=== PATIENT | female | born 1975 | race Caucasian/White ===

== ENCOUNTER → 2018-03-20 | Day surgery (SDC) | payer OTHER ==
[~2018-03-20] MED LIST: FENTANYL CITRATE/PF 100MCG/2 ML INJ ONE; GABAPENTIN600 MG PO; HYDROCORTISONE SOD SUCCINATE 100 MG VIAL ONE; LISINOPRIL PO; METFORMIN HCL1000 MG PO; METHOTREXA25 MG/1 ML INJ; MIDAZOLAM HCL 2 MG/2 ML VIAL ONE; PLAQUENIL200 MG PO; PRAVASTATIN SOD40 MG PO; PREDNISONE20 MG PO; PROPOFOL IV EMULSION 10 MG/ML 50 ML VIAL ONE; SODIUM CHLORIDE 0.9% 50ML 50 ML ONE
--- OUTSIDE RECORDS SUMMARY | 2018-03-20 10:17 | XMS REPORT | Clinical Summary ---
Author Author [facility] Organization [facility] Address Unknown Phone Unavailable Care Team Providers Care Service Bar Cashier Name Role Phone Asked, No Pcp PCP Unavailable Allergies No Known Allergies Medications Not on file Active Problems Not on file Social History Date Tobacco Use Types Packs/Day Years Used Never Smoker Sex Assigned at Date Recorded Not on file Industry Job Start Date Occupation Not on file Not on file Not on file Travel End Travel History Travel Start No recent travel history available. Last Filed Vital Signs Not on file Plan of Treatment Health Maintenance Due Date Last Done Comments CERVICAL CANCER SCREENING 1998 INFLUENZA VACCINE 10/30/2017 Results Not on fileafter 03/19/2017 Insurance Payer Benefit Subscriber ID Type Phone Address Plan / Group AETNA AETNA xxxxxxxxxx HMO HMO,POS,EP O, [facility] (Home) [place] [address] Advance Directives Patient has advance care planning documents on file. For more information, [place] [facility] contact: Hank Patterson [phone] [place] [address]
[2018-03-20 13:45] VITALS: BP 113/48
--- NOTE | 2018-03-20 14:42 | Operative Report ---
DATE OF PROCEDURE: March 20, 2018 REFERRING PHYSICIAN: Dr. Raffy Suarez PROCEDURE PERFORMED: Esophagogastroduodenoscopy. INDICATIONS FOR EGD: Upper abdominal pain. MEDICATION: Patient was done under MAC. Please see anesthesiologist's note. PROCEDURE: With the patient in the left lateral decubitus position, the flexible fiberoptic Olympus gastroscope was introduced into the esophagus under direct visualization without any difficulty. There was some patchy erythema noted in the distal esophagus. The scope was then advanced with ease into the stomach, and mucosa overlying the antrum and the body revealed some patchy erythema and low-grade to moderate edema, and biopsies were obtained and sent to stain for H. pylori. The pylorus was of normal contour and shape. It was intubated with ease, and the scope was advanced all way to the 2nd portion of the duodenum. Biopsies were obtained from the proximal 2nd portion and the duodenal bulb to rule out sprue. The scope was then withdrawn back into the stomach and retroflexed. Mucosa overlying the fundus and the cardia appeared to be within normal limits. The scope was then straightened out. It was subsequently withdrawn. Patient tolerated the procedure well. IMPRESSION 1. Distal esophagitis, mild. 2. Gastritis, biopsied. Biopsies sent to stain for H. pylori. 3. Rule out sprue. PLAN: Follow up histology. Initiate Protonix 40 mg 1 p.o. q.a.m. a.c. Job#: [id number] cc:LULY SUAREZ DO
== END | disposition home or self-care (01) ==
LOC: OR 10:12
PROVIDERS: ATTEND Internal Medicine Gastroenterology
DX: K29.70 Gastritis, unspecified, without bleeding (principal); K20.9 Esophagitis, unspecified; M06.9 Rheumatoid arthritis, unspecified; E11.9 Type 2 diabetes mellitus without complications; Z79.84 Long term (current) use of oral hypoglycemic drugs
CPT/HCPCS: 36415; 43239; 81025; 82948; J1720; J2250

== ENCOUNTER 2019-03-06 10:50 | Observation (INO) | payer OTHER ==
[2019-03-05 16:34] LABS: CLARITY,URINE CLEAR (CLEAR); COLOR,URINE COLORLESS (YELLOW); LEUKOCYTE ESTERASE ,URINE NEGATIVE (NEGATIVE); NITRITE,URINE NEGATIVE (NEGATIVE)
[2019-03-05 16:35] LABS: PROTEIN,URINE DIPSTICK NEGATIVE (NEGATIVE); URINE UROBILINOGEN 0.2 mg/dL (0.2 - 1)
[2019-03-05 16:36] LABS: BILIRUBIN,URINE NEGATIVE (NEGATIVE); KETONES,URINE NEGATIVE (NEGATIVE)
[2019-03-05 16:43] LABS: BASOPHILS # (AUTO) 0.1 (0.0-0.1); BASOPHILS % 0.6 % (0.0-1.0); EOSINOPHILS % 0.5 % (0.0-6.0); HEMATOCRIT 32.7 % (34.2-44.1); HEMOGLOBIN 10.3 g/dL (12.0-16.0); LYMPHOCYTES # (AUTO) 2.3 (1.0-3.2); LYMPHOCYTES % 27.3 % (18.0-39.1); MEAN CORPUSCULAR HGB CONC 31.5 g/dL (31-35); MEAN CORPUSCULAR VOLUME 82.6 fL (81-99); MONOCYTES # (AUTO) 0.7 (0.2-0.8); MONOCYTES % 8.1 % (4.4-11.3); NEUTROPHILS # (AUTO) 5.4 (2.1-6.9); NEUTROPHILS % 63.1 % (38.7-80.0); PLATELET COUNT 311 x10e3/uL (140-360); RED BLOOD COUNT 3.96 x10e6/uL (3.6-5.1); RED CELL DISTRIBUTION WIDTH 14.9 % (11.7-14.4)
[2019-03-05 17:07] LABS: ALANINE AMINOTRANSFERASE 11 IU/L (0-55); ALBUMIN 4.2 g/dL (3.5-5.0); ALBUMIN/GLOBULIN RATIO 1.4 (0.8-2.0); ALKALINE PHOSPHATASE 46 IU/L (40-150); ANION GAP 15.8 mmol/L (8-16); BLOOD UREA NITROGEN 15 mg/dL (7-26); BUN/CREATININE RATIO 21 (6-25); CALCIUM 9.6 mg/dL (8.4-10.2); CARBON DIOXIDE 24 mmol/L (22-29); CHLORIDE 101 mmol/L (98-107); CREATININE, SERUM 0.73 mg/dL (0.57-1.11); EST GLOMERULAR FILTRATION RATE > 60 ML/MIN (60-); GLUCOSE 104 mg/dL (74-118); POTASSIUM 3.8 mmol/L (3.5-5.1); SODIUM 137 mmol/L (136-145)
[~2019-03-06] VITALS: Ht 175.3 cm; Wt 53.1 kg
[~2019-03-06 10:50] MED LIST changes: -FENTANYL CITRATE/PF 100MCG/2 ML INJ ONE; -HYDROCORTISONE SOD SUCCINATE 100 MG VIAL ONE; -MIDAZOLAM HCL 2 MG/2 ML VIAL ONE; -PROPOFOL IV EMULSION 10 MG/ML 50 ML VIAL ONE; +REMICADE100 MG/VIA IV; -SODIUM CHLORIDE 0.9% 50ML 50 ML ONE; +SOMA350 MG PO; +TRULICITY1.5 MG/0.5 SC
[2019-03-06] MEDS ORDERED: CEFAZOLIN SOD 1 GM/NS 50ML 100 ML IV ONE (11:09)
[2019-03-06] MEDS ORDERED: BUPIVACAINE 0.25%/EPI 30ML SDV INJ ONE (12:31)
[2019-03-06] MEDS ORDERED: ESTROGENS CONJUGATED VAGINAL CR 45 GM TUBE PV ONE (12:31)
[2019-03-06] MEDS ORDERED: FENTANYL CITRATE/PF 100MCG/2 ML INJ ONE ×2 (14:00→16:04)
[2019-03-06] MEDS ORDERED: MIDAZOLAM HCL 2 MG/2 ML VIAL ONE (14:00)
[2019-03-06] MEDS ORDERED: ACETAMINOPHEN 325 MG TAB PO PRN (15:30)
[2019-03-06] MEDS ORDERED: DIPHENHYDRAMINE HCL 25 MG CAP PO PRN (15:30)
[2019-03-06] MEDS ORDERED: BISACODYL 10 MG SUPP PR PRN (15:30)
[2019-03-06] MEDS ORDERED: KETOROLAC TROMETHAMINE 30 MG/ML VIAL IV PRN (15:30)
[2019-03-06] MEDS ORDERED: DOCUSATE SODIUM 100 MG CAP PO PRN (15:30)
[2019-03-06] MEDS ORDERED: SIMETHICONE 80 MG CHEW PO PRN (15:30)
[2019-03-06] MEDS ORDERED: MEPERIDINE HCL INJ 25 MG/ML VIAL ONE (15:37)
[2019-03-06 16:51] VITALS: BP 129/71
[2019-03-06] MEDS ORDERED: METFORMIN HCL 500 MG TAB CR PO SCH (17:00)
[2019-03-06] MEDS: METFORMIN HCL 500 MG TAB CR PO SCH (17:00)
[2019-03-06] MEDS: HYDROMORPHONE 1MG/1ML INJ IV PRN ×2 (17:05→21:08)
[2019-03-06] MEDS: LACTATED RINGER'S 1,000 ML IV SCH (17:12)
[2019-03-06] MEDS: ONDANSETRON HCL INJ 2MG/ML 2ML 2 MG/ML VIAL IV PRN (17:12)
[2019-03-06 17:30] VITALS: BP 129/71
[2019-03-06 17:36] VITALS: BP 129/71
[2019-03-06] MEDS ORDERED: PROPOFOL IV EMULSION 10 MG/ML 20 ML VIAL ONE (18:47)
[2019-03-06] MEDS ORDERED: ONDANSETRON HCL INJ 2MG/ML 2ML 2 MG/ML VIAL ONE (18:47)
[2019-03-06] MEDS ORDERED: NEOSTIGMINE 1 MG/ML 10ML VIAL ONE (18:47)
[2019-03-06] MEDS ORDERED: LIDOCAINE HCL 2% JELLY 5 ML TUBE ONE (18:47)
[2019-03-06] MEDS ORDERED: ACETAMINOPHEN 1000 MG/100 ML IV ONE (18:47)
[2019-03-06] MEDS ORDERED: ROCURONIUM BROMIDE 10 MG/ML 5ML VIAL ONE (18:47)
[2019-03-06] MEDS ORDERED: GLYCOPYRROLATE INJ 0.2 MG/ML VIAL ONE (18:47)
[2019-03-06] MEDS ORDERED: DEXAMETHASONE SOD PHOS INJ 4 MG/ML VIAL ONE (18:47)
[2019-03-06] MEDS ORDERED: SEVOFLURANE INHAL SOLN 250 ML PEN BTL ONE (18:47)
[2019-03-06] MEDS ORDERED: LIDOCAINE HCL 2% LOCAL INJ 5 ML SDV VIAL INJ ONE (18:47)
--- NOTE | 2019-03-06 19:05 | NUR ---
Received report from previous nurse. Call light within reach. Patient in bed. Family at the bedside.
[2019-03-06 20:50] VITALS: BP 112/59
[2019-03-06] MEDS: CEFAZOLIN SOD 2 GM/D5W 50ML 50 ML IV SCH (20:59)
[2019-03-06] MEDS: GABAPENTIN 300 MG CAP PO SCH (20:59)
[2019-03-06] MEDS ORDERED: NON-FORMULARY MEDICATION (Gabapentin 600 MG) PO SCH (21:00)
--- NOTE | 2019-03-06 21:05 | NUR ---
Patient wanted to walk around the room and Gonzalez was removed. Patient voided immediately after the Gonzalez was removed.
[2019-03-06 21:48] VITALS: BP 112/59
[2019-03-06] MEDS ORDERED: CEFAZOLIN SOD 1 GM VIAL IV SCH (22:00)
[2019-03-06] MEDS: TRAMADOL HCL 50 MG TAB PO PRN (22:15)
--- NOTE | 2019-03-06 23:19 | Operative Report ---
DATE OF PROCEDURE: 03/06/2019 SURGEON: Jono Dudley MD PREOPERATIVE DIAGNOSES: Menorrhagia, fibroid uterus, and anemia. POSTOPERATIVE DIAGNOSES: Menorrhagia, fibroid uterus, anemia, and endometriosis. TITLE OF PROCEDURE: Total laparoscopic hysterectomy, right salpingo-oophorectomy, left salpingectomy, and cautery of endometriosis. DIAGNOSTIC TECHNOLOGIST: Tip Mccloud MD ANESTHESIA: General with Dr. Bey and Andrzej assistant baseball coach. INDICATION FOR OPERATION: The patient is a 43-year-old 2, para 2 with last menstrual period on February 10, 2019, using withdrawal for contraception, who has a history of abnormal uterine bleeding, which was heavy for 3 days each period. She has had increasing right lower quadrant pain since January 27, 2019, becoming severe. She has failed medical therapy and she would like total laparoscopic hysterectomy, right salpingo-oophorectomy. Endometrial biopsy was attempted to evaluate the abnormal bleeding, but was unsuccessful. Ultrasound did show a 7 mm endometrium. Her cervix was stenotic from previous LEEP procedure. She was therefore taken to the operating room at this time for total laparoscopic hysterectomy. FINDINGS OF SURGERY: There was an 8-10 week size nodular uterus with specially anterosuperior subserosal myoma. The uterus was otherwise mobile. There were no adhesions. There was normal tubes and ovaries. There was a small spot of endometriosis noted on the right uterosacral ligament, which was cauterized. DESCRIPTION OF PROCEDURE: The patient was taken to the operating room, placed on the table in supine position. General anesthesia was administered. The patient was placed in the lithotomy position. The perineum was prepared and draped in usual sterile manner. The Gonzalez catheter was placed in bladder for constant drainage. Pelvic exam revealed an 8-10 week size nodular uterus, which was mobile with no adnexal masses. A weighted speculum was placed in the posterior vaginal wall. Then with the aid of right-angle retractor, the cervix was grasped with 2 single-tooth tenacula. The cervix was stenotic and with some difficulty, we were able to dilate it. Eventually, we were able to place the large VCare cup on the cervix, apply it well, and it apparently manipulated the uterus quite well. At this point, we proceeded with the hysterectomy. The nailer operator changed gloves. A small incision was made just inferior to the umbilicus in the midline. The Veress needle was inserted through the incision into the peritoneal cavity. A pneumoperitoneum was created by insufflation of 3 L of carbon dioxide gas under a filling pressure of 8-10 mmHg. The Veress needle was removed and then the trocar was inserted through the incision into the peritoneal cavity under direct visualization. The trocar was removed and the laparoscoped was placed. With confirmation of the peritoneal cavity being entered, a second trocar was placed in the right lower quadrant under direct visualization by laparoscopy and a third trocar was placed in the left lower quadrant under direct visualization by laparoscopy. At this point, we examined the contents of the abdomen and pelvis, finding no adhesions. We found an 8-10 week size nodular uterus with fibroids. There were no adhesions. There was normal tubes and ovaries. There was a small spot of endometriosis noted on the right uterosacral ligament, which was cauterized. At this point, attention was turned to the left adnexa. It was grasped and then the left tube was grasped and the LigaSure instrument was placed over the mesosalpinx, the tube from the ovary. The LigaSure instrument was fired and then the mesosalpinx was cut and the ovary was from the tube. There was good hemostasis presently, cut down further on the mesosalpinx, clamping, cauterizing, and cutting with the LigaSure instrument until we reached the tubo-ovarian ligament, which was then clamped and cut after being cauterized. At this point, the round ligament was clamped, cauterized, and cut and then at this point, a window was made in the anterior peritoneum using the LigaSure instrument, cutting from the anterior peritoneum on the left side to the midline, clamping and cauterizing and then cutting and then at this point, the VCare cup was visualized and the vessels were well from the attachments being well skeletonized. We placed the LigaSure over the uterine vessels, clamping, cauterizing twice, and then cauterizing medial to this and then cutting on the left side and then there was good hemostasis in evidence. At this point, the uterosacral ligament on the left side was clamped with the LigaSure, cauterized and cut, and then we had access to the posterior portion of the VCare cup and anteriorly the bladder was pushed away from the uterus and the small blood vessels in that area were cauterized. At this point, we went to the right side, grasped the uterus and tubes, placed the LigaSure instrument over the infundibulopelvic ligament, clamping, cauterizing twice, and then cutting. This the right tube and ovary away from the pelvic sidewall. At this point, the mesosalpinx was clamped, cauterized, and cut in several bites until we reached the round ligament, which was then clamped, cauterized, and cut. At this point, the anterior peritoneum was opened from the right side to the midline and then we were able to push the bladder away from the uterus with blunt dissection and then we were able to identify the VCare cup position. At this point, the uterine vessels on the right side were skeletonized and they were clamped close to the uterus, cauterized in two places, and then cauterized again more medial, and the uterine vessels were cut, and there was good hemostasis in evidence there. At this point, we pushed the bladder down more and then the VCare cup could be seen through the tissue. We then circumscribed the uterus with the L hook cauterizing within the VCare cup and 360 degrees around the cervix. This isolated the uterus cutting away from all its attachments, both uterosacral ligaments and the cardinal ligaments on each side. Then the uterus was free. Before we cut it away, there was a spot of endometriosis noted on the right uterosacral ligament. This was clamped and cauterized until it was completely obliterated. At this point, the uterus was then removed and we instructed the anesthesiologist to give a fluid bolus for the later cystoscopy and we proceeded to close the vaginal cuff with 4 [id number] stitches of 2-0 Vicryl suture using laparoscopic suturing. First, the angles were ligated and cut and then the rest of the vaginal cuff was tied off with a [id number] stitches. There was good hemostasis in evidence. Then, we irrigated and suctioned, found to be no further bleeding. At this point, after more irrigation and suction, Dr. Mccloud proceeded to fill the bladder with fluid while we were observing laparoscopically. There was no evidence of any leaks in the bladder and then following this, we proceeded to perform cystoscopy. The scope was placed in the bladder and we observed the ureteral orifices and noted good urine flow from both ureters and the ureteral jets were well identified. At this point, the cystoscopy was concluded and then all the air and instruments were removed from the abdomen. The skin incisions were closed with inverted stitches of 4-0 Monocryl suture inverted stitches thus completing the procedure. There were no complications noted. Estimated blood loss was 100 mL. The patient tolerated the procedure well, was transferred from the operating room to recovery room in stable condition. Of note, Dr. Mccloud assisted with retraction, hemostasis, visualization, suturing, irrigation, and suctioning. The patient was taken from the operating room to recovery room in stable condition. MD MORIAH Jhaveri/JB /[id number]
[2019-03-07] VITALS: BP 117/58
[2019-03-07] MEDS: HYDROMORPHONE 1MG/1ML INJ IV PRN ×4 (01:22→12:21)
[2019-03-07] MEDS: CEFAZOLIN SOD 2 GM/D5W 50ML 50 ML IV SCH ×2 (03:46→11:03)
[2019-03-07 05:34] VITALS: BP 120/60
[2019-03-07 06:14] LABS: BASOPHILS % 0.4 % (0.0-1.0); EOSINOPHILS # (AUTO) 0.1 (0.0-0.4); EOSINOPHILS % 1.1 % (0.0-6.0); HEMATOCRIT 28.5 % (34.2-44.1); HEMOGLOBIN 8.9 g/dL (12.0-16.0); LYMPHOCYTES % 29.6 % (18.0-39.1); MEAN CORPUSCULAR HEMOGLOBIN 26.3 pg (28-32); MEAN CORPUSCULAR HGB CONC 31.2 g/dL (31-35); MEAN CORPUSCULAR VOLUME 84.3 fL (81-99); MONOCYTES % 9.8 % (4.4-11.3); NEUTROPHILS % 58.6 % (38.7-80.0); PLATELET COUNT 249 x10e3/uL (140-360); RED BLOOD COUNT 3.38 x10e6/uL (3.6-5.1); RED CELL DISTRIBUTION WIDTH 14.9 % (11.7-14.4)
[2019-03-07 06:35] LABS: ANION GAP 12.6 mmol/L (8-16); BLOOD UREA NITROGEN 7 mg/dL (7-26); BUN/CREATININE RATIO 11 (6-25); CALCIUM 8.1 mg/dL (8.4-10.2); CARBON DIOXIDE 25 mmol/L (22-29); CHLORIDE 103 mmol/L (98-107); CREATININE, SERUM 0.65 mg/dL (0.57-1.11); EST GLOMERULAR FILTRATION RATE > 60 ML/MIN (60-); GLUCOSE 89 mg/dL (74-118); POTASSIUM 3.6 mmol/L (3.5-5.1); SODIUM 137 mmol/L (136-145)
[2019-03-07] MEDS: LACTATED RINGER'S 1,000 ML IV SCH ×2 (07:19→08:31)
--- NOTE | 2019-03-07 07:50 | NUR ---
GAVE REPORT TO ONCOMING NURSE. CALL LIGHT WITHIN REACH. PATIENT IN BED.
[2019-03-07] MEDS: METFORMIN HCL 500 MG TAB CR PO SCH (08:31)
[2019-03-07] MEDS: ONDANSETRON HCL INJ 2MG/ML 2ML 2 MG/ML VIAL IV PRN ×2 (08:31→12:21)
[2019-03-07 08:39] VITALS: BP 118/58
[2019-03-07] MEDS: GABAPENTIN 300 MG CAP PO SCH (08:40)
[2019-03-07 08:48] VITALS: BP 118/58
[2019-03-07] MEDS ORDERED: METFORMIN HCL 2000 MG PO SCH (09:00)
[2019-03-07] MEDS ORDERED: PREDNISONE 20 MG TAB PO SCH (09:00)
[2019-03-07] MEDS ORDERED: PREDNISONE 5 MG TAB PO SCH (09:00)
[2019-03-07] MEDS: TRAMADOL HCL 50 MG TAB PO PRN (09:37)
[2019-03-07] MEDS ORDERED: ZOFRAN8 MG SL (10:42)
[2019-03-07] MEDS ORDERED: TYLENOL WITH C1 EACH PO (10:42)
[2019-03-07 12:18] VITALS: BP 121/56
== END 2019-03-07 12:24 | disposition home or self-care (01) ==
LOC: OR 10:50 → PACU V 15:33 → MED/SURG 16:27
PROVIDERS: ADMIT Obstetrics & Gynecology; ATTEND Obstetrics & Gynecology
DX: D25.2 Subserosal leiomyoma of uterus (principal); N92.0 Excessive and frequent menstruation with regular cycle; N72 Inflammatory disease of cervix uteri; N83.201 Unspecified ovarian cyst, right side; N73.6 Female pelvic peritoneal adhesions (postinfective); D64.9 Anemia, unspecified
CPT/HCPCS: 36415 ×3; 58571; 58662; 80048; 80053; 81003; 82948 ×2; 84702; 85025 ×2; 86850; 86900; 88307; 93005; G0378 ×2; J0131; J0690 ×2; J1100; J1170 ×2; J1885; J2001 ×2; J2175; J2250; J2405 ×2; J2704; J2710; J3010; J7121; J7512